=== PATIENT | male | born 1955 | race Caucasian/White ===

== ENCOUNTER 2018-02-22 10:33 | Emergency (ER) | payer OTHER ==
[~2018-02-22] VITALS: Ht 175.3 cm; Wt 108.9 kg
[~2018-02-22 10:33] MED LIST: ACETAMINOPHEN-1 EAC1 PO; CIPROFLOXACIN500 M1 PO; FLAGYL500 MG PO; MELATONIN; OMEPRAZOLE20 MG; PERCOCET 5-3251 EACH PO; ZOFRAN4 MG PO
[2018-02-22 10:59] LABS: ABSOLUTE BASOPHILS 0.1 thou/uL (0.0-0.2); ABSOLUTE LYMPHOCYTES 2.3 thou/uL (0.8-5.3); ABSOLUTE NEUTROPHILS 10.3 thou/uL (1.6-8.1); BASOPHILS 0.4 %; EOSINOPHILS 0.2 %; HEMATOCRIT 45.3 % (42.0-52.0); HEMOGLOBIN 15.8 gm/dL (14.0-18.0); LYMPHOCYTES 16.6 %; MCH 31.5 pg (26.0-34.0); MCHC 34.8 g/dL (28.0-37.0); MCV 90.6 fL (80.0-100.0); MONOCYTES 7.3 %; MPV 9.5 fl. (7.2-11.1); NUCLEATED RBCS 0 /100WBC; PLATELET COUNT* 189 thou/uL (150-400); POLYS 75.5 %; RBC 5.01 mil/uL (4.50-6.00); RDW-CV 13.6 % (10.5-14.5); WBC 13.7 thou/uL (4.0-11.0)
[2018-02-22 11:00] LABS: URINE BILIRUBIN NEGATIVE (Negative); URINE BLOOD NEGATIVE (Negative); URINE CLARITY CLEAR; URINE GLUCOSE-RANDOM NEGATIVE (Negative); URINE KETONES NEGATIVE (Negative); URINE LEUKOCYTES NEGATIVE (Negative); URINE NITRITE NEGATIVE (Negative); URINE PROTEIN 1+ (Negative); URINE SPECIFIC GRAVITY >= 1.030 (1.005-1.030); URINE UROBILINOGEN 0.2 E.U./dl (0.2-1.0)
[2018-02-22 11:04] LABS: URINE COLOR DARK YELLOW
[2018-02-22 11:04] LABS: CALCIUM 8.3 mg/dL (8.5-10.1); CREATININE 1.1 mg/dL (0.6-1.3); POTASSIUM 3.8 mmol/L (3.5-5.1)
[2018-02-22 11:08] LABS: ALBUMIN 3.4 g/dL (3.4-5.0); TOTAL BILIRUBIN 1.6 mg/dL (<0.1-1.0); TOTAL PROTEIN 8.1 g/dL (6.4-8.2)
[2018-02-22] MEDS ORDERED: FLAGYL500 MG PO (12:12)
[2018-02-22] MEDS ORDERED: CIPRO500 MG PO (12:12)
[2018-02-22] MEDS ORDERED: ZOFRAN ODT4 MG PO (12:12)
[2018-02-22] MEDS ORDERED: TRAMADOL 50 MG50 MG PO (12:16)
[2018-02-22 13:28] VITALS: BP 120/76
--- NOTE | 2018-02-22 14:40 | EKG ---
[place] [address] ELECTROCARDIOGRAM REPORT Name: SHANNAN BEST Room: 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
== END 2018-02-22 13:29 | disposition home or self-care (01) ==
LOC: M.ERS 10:33
PROVIDERS: Nurse Practitioner Family
DX: K57.32 Diverticulitis of large intestine without perforation or abscess without bleeding (principal); R11.2 Nausea with vomiting, unspecified; E78.00 Pure hypercholesterolemia, unspecified; K21.9 Gastro-esophageal reflux disease without esophagitis

== ENCOUNTER → 2018-12-13 | Outpatient (CLI) | payer MEDICARE, OTHER ==
[~2018-12-13] MED LIST changes: +CIPRO500 MG PO; +TRAMADOL 50 MG50 MG PO; +ZOFRAN ODT4 MG PO
[2018-12-13 07:02] LABS: ABSOLUTE EOSINOPHILS 0.4 thou/uL (0.0-0.7); ABSOLUTE LYMPHOCYTES 1.6 thou/uL (0.8-5.3); ABSOLUTE MONOCYTES 0.9 thou/uL (0.0-1.2); ABSOLUTE NEUTROPHILS 3.2 thou/uL (1.6-8.1); BASOPHILS 0.7 %; EOSINOPHILS 6.7 %; HEMATOCRIT 43.6 % (42.0-52.0); HEMOGLOBIN 15.1 gm/dL (14.0-18.0); LYMPHOCYTES 26.2 %; MCH 31.7 pg (26.0-34.0); MCHC 34.6 g/dL (28.0-37.0); MCV 91.8 fL (80.0-100.0); MONOCYTES 14.4 %; MPV 9.7 fl. (7.2-11.1); NUCLEATED RBCS 0 /100WBC; PLATELET COUNT* 176 thou/uL (150-400); RBC 4.75 mil/uL (4.50-6.00); RDW-CV 13.5 % (10.5-14.5); WBC 6.1 thou/uL (4.0-11.0)
[2018-12-13 07:14] LABS: ALBUMIN 3.5 g/dL (3.4-5.0); CREATININE 1.1 mg/dL (0.6-1.3); TOTAL BILIRUBIN 0.7 mg/dL (<0.1-1.0); TOTAL PROTEIN 7.7 g/dL (6.4-8.2)
== END ==
LOC: M.LAB 12-12 06:30 → M.CT 12-12 08:00 → M.LAB 06:30
PROVIDERS: Physician Assistant
DX: K57.92 Diverticulitis of intestine, part unspecified, without perforation or abscess without bleeding (principal); Z79.899 Other long term (current) drug therapy

== ENCOUNTER 2020-11-18 10:39 | Emergency (ER) | payer OTHER, MEDICARE ==
[~2020-11-18] VITALS: Ht 172.7 cm; Wt 104.3 kg
[2020-11-18] MEDS ORDERED: TOPROL XL25 MG PO (10:55)
[2020-11-18] MEDS ORDERED: ASA81BEC PO (10:55)
[2020-11-18] MEDS ORDERED: ATORVASTATIN CA80 MG PO (10:55)
[2020-11-18] MEDS ORDERED: PLAVIX 75 MG TA75 MG PO (10:55)
[2020-11-18] MEDS ORDERED: PROTONIX40 M4 PO (10:56)
[2020-11-18] MEDS ORDERED: CETIRIZINE1 MG/1 ML PO (10:56)
[2020-11-18] MEDS ORDERED: VOLTAREN GEL 1100 G2 TOP (10:57)
[2020-11-18 11:11] LABS: ABSOLUTE BASOPHILS 0.1 thou/uL (0.0-0.2); ABSOLUTE EOSINOPHILS 0.3 thou/uL (0.0-0.7); ABSOLUTE LYMPHOCYTES 2.1 thou/uL (0.8-5.3); ABSOLUTE MONOCYTES 1.3 thou/uL (0.0-1.2); BASOPHILS 0.6 %; HEMATOCRIT 43.2 % (42.0-52.0); HEMOGLOBIN 15.1 gm/dL (14.0-18.0); LYMPHOCYTES 21.3 %; MCH 31.7 pg (26.0-34.0); MCV 90.5 fL (80.0-100.0); MONOCYTES 13.3 %; MPV 9.4 fl. (7.2-11.1); NUCLEATED RBCS 0 /100WBC; PLATELET COUNT* 170 thou/uL (150-400); POLYS 61.8 %; RBC 4.78 mil/uL (4.50-6.00); RDW-CV 13.2 % (10.5-14.5); WBC 9.7 thou/uL (4.0-11.0)
[2020-11-18 11:19] LABS: CALCIUM 8.8 mg/dL (8.5-10.1); POTASSIUM 3.9 mmol/L (3.5-5.1)
[2020-11-18 11:23] LABS: ALBUMIN 3.3 g/dL (3.4-5.0); TOTAL BILIRUBIN 1.7 mg/dL (<0.1-1.0); TOTAL PROTEIN 7.9 g/dL (6.4-8.2)
[2020-11-18 11:30] LABS: URINE BILIRUBIN NEGATIVE (Negative); URINE BLOOD NEGATIVE (Negative); URINE CLARITY CLEAR; URINE COLOR YELLOW; URINE GLUCOSE-RANDOM NEGATIVE (Negative); URINE KETONES NEGATIVE (Negative); URINE LEUKOCYTES-REFLEX NEGATIVE (Negative); URINE NITRITE-REFLEX NEGATIVE (Negative); URINE PROTEIN NEGATIVE (Negative)
[2020-11-18] MEDS ORDERED: HYDROCODON-ACE1 EAC7 PO (12:52)
[2020-11-18] MEDS ORDERED: ZOFRAN ODT4 MG DISSOLVE (12:52)
[2020-11-18] MEDS ORDERED: AUGMENTIN 875-1 EACH PO (12:52)
[2020-11-18 12:58] VITALS: BP 122/77
--- NOTE | 2020-11-18 13:53 | EKG ---
[place] [address] ELECTROCARDIOGRAM REPORT Name: SHANNAN BEST Room: 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: : 1955 Requested By: Hunter Alvarado Order Number: [id number] MD: Dwight Jang Measurements Intervals [place] Rate: 68 P: 24 MN: 159 QRS: -8 QRSD: 91 T: 46 QT: 395 QTc: 421 Interpretive Statements Sinus rhythm Compared to ECG 02/22/2018 11:08:17 Left ventricular hypertrophy no longer present Electronically Signed On 11-18-2020 13:53:14 CDT by Dwight Jang [email or web address] <ELECTRONICALLY SIGNED> By: Dwight Jang MD, [facility] 11/18/20 1353 1120 1120 Dwight Jang MD, [facility] /EPI
== END 2020-11-18 12:59 | disposition home or self-care (01) ==
LOC: M.ERS 10:39
PROVIDERS: Emergency Medicine Emergency Medical Services
DX: K57.32 Diverticulitis of large intestine without perforation or abscess without bleeding (principal); E78.00 Pure hypercholesterolemia, unspecified; K21.9 Gastro-esophageal reflux disease without esophagitis